=== PATIENT | female | born 1995 | race African-American/Black ===

== ENCOUNTER 2017-02-25 12:36 | Emergency (ER) | payer OTHER ==
[2017-02-25 12:44] VITALS: BP 151/72
[2017-02-25 15:22] LABS: Hematocrit 30 % (35-47); Hemoglobin 10.5 g/dl (12.0-16.0); Mean Corpuscular HGB Conc 36 g/dl (31-36); Mean Corpuscular Hemoglobin 32 pg (27-31); Mean Corpuscular Volume 90 fL (80-97); Mean Platelet Volume 8 um3 (7.4-10.4); Red Blood Count 3.29 10^6/ul (4.0-5.4); Red Cell Distribution Width 13 % (10.5-15); White Blood Count 6.2 10^3/ul (3.5-10.8)
[2017-02-25 15:39] LABS: Urine Bacteria 1+ (Absent); Urine Bilirubin Negative (Negative); Urine Glucose Negative (Negative); Urine Nitrite Negative (Negative)
[2017-02-25 15:55] LABS: Albumin 3.5 g/dL (3.2-5.2); BUN/Creatinine Ratio 16.4 (8-20); Calcium 8.6 mg/dL (8.6-10.3); EGFR African American 179.4 (>60); EGFR Non-African American 139.5 (>60); Globulin 2.8 g/dL (2-4); Potassium 3.7 mmol/L (3.5-5.0); Total Bilirubin 0.2 mg/dL (0.2-1.0); Total Protein 6.3 g/dL (6.4-8.9)
--- NOTE | 2017-02-26 15:21 | ED ---
Stacy Sierra Nilda, scribed for Shaka Estes MD on 02/25/17 at 1606 . - HPI Summary HPI Summary: This patient is a 21 year old F presenting to [facility] accompanied by daughter with a chief complaint of constant lower abd pain since yesterday. The patient rates the pain 3/10 in severity. Symptoms aggravated by pressure and alleviated by rest. Pt states she is between 32-33 weeks and just moved to [facility], so she does not currently have pre-lonnie care. Pt due date is 04/19/16 and this is her second . Hx preeclampsia with first child. First child was born 2 weeks early. Pt states she last received pre-lonnie care in February. Patient denies complications with current , abnormal vaginal discharge, headache, CP, SOB, and vision changes. LNMP unknown. Pt is concerned for baby's wellbeing. - History of Current Complaint Chief Complaint: EDAbdPain Stated Complaint: 32 WEEKS / ABD PAIN Time Seen by Provider: 02/25/17 14:43 Hx Obtained From: Patient Chief Complaint: Other: - Lower Abd/Pain Onset/Duration: Started Days Ago, Still Present Timing: Constant Current Severity: Mild Pain Intensity: 3 Location of Pain: Left Side - Lower Aggravating Factors: Other: - pressure Alleviating Factors: Other: - rest Associated Signs and Symptoms: Positive: Other: - abd pain; denies complications with current , abnormal vaginal discharge, headache, CP, SOB, and vision changes. - Assessment Expected Date of Delivery: 04/19/16 Hx : 2 Hx Para: 2 History of Ectopic : No Vaginal Bleeding Amount: None - Allergies/Home Medications Allergies/Adverse Reactions: Allergies Allergy/AdvReac Type Severity Reaction Status Date / Time No Known Allergies Allergy Verified 02/25/17 12:40 PMH/Surg Hx/FS Hx/Imm Hx Cardiovascular History: Reports: Hx Hypertension Sensory History: Denies: Hx Legally Blind EENT History: Denies: Hx Deafness Infectious Disease History: No Infectious Disease History: Denies: Traveled Outside the [place] in Last 30 Days - Family History Known Family History: Positive: Hypertension, Diabetes Review of Systems Positive: Other - negative vision changes Negative: Chest Pain Negative: Shortness Of Breath Positive: Abdominal Pain Positive: other - 32-33 weeks . Negative: discharge Negative: Headache All Other Systems Reviewed And Are Negative: Yes Physical Exam - Summary Physical Exam Summary: VITAL SIGNS: Reviewed. GENERAL: Patient is a well-developed and nourished (MALE OR FEMALE) who is lying comfortable in the stretcher. Patient is not in any acute respiratory distress. HEAD AND FACE: No signs of trauma. No ecchymosis, hematomas or skull depressions. No sinus tenderness. EYES: PERRLA, EOMI x 2, No injected conjunctiva, no nystagmus. EARS: Hearing grossly intact. Ear canals and tympanic membranes are within normal limits. MOUTH: Oropharynx within normal limits. NECK: Supple, trachea is midline, no adenopathy, no JVD, no carotid bruit, no c- spine tenderness, neck with full ROM. CHEST: Symmetric, no tenderness at palpation LUNGS: Clear to auscultation bilaterally. No wheezing or crackles. CVS: Regular rate and rhythm, S1 and S2 present, no murmurs or gallops appreciated. ABDOMEN: Soft, non-tender. No rebound no guarding, and no masses palpated. Bowel sounds are normal. Distended abd secondary to . EXTREMITIES: FROM in all major joints, no edema, no cyanosis or clubbing. NEURO: Alert and oriented x 3. No acute neurological deficits. Speech is normal and follows commands. SKIN: Dry and warm - Physical Exam Triage Information Reviewed: Yes Vital Signs Reviewed: Yes Diagnostics - Vital Signs Vital Signs Temp Pulse Resp BP Pulse Ox 02/25/17 12:40 97.1 F 99 16 151/72 99 - Laboratory Result Diagrams: 02/25/17 15:10 02/25/17 15:10 Lab Statement: Any lab studies that have been ordered have been reviewed, and results considered in the medical decision making process. Course/Dx - Course Assessment/Plan: This patient is a 21 year old F presenting to [facility] accompanied by daughter with a chief complaint of constant lower abd pain since yesterday. The patient rates the pain 3/10 in severity. Symptoms aggravated by pressure and alleviated by rest. Pt states she is between 32-33 weeks and just moved to [facility], so she does not currently have pre-lonnie care. Pt due date is 04/19/16 and this is her second . Hx preeclampsia with first child. First child was born 2 weeks early. Pt states she last received pre- lonnie care in February. Patient denies complications with current , abnormal vaginal discharge, headache, CP, SOB, and vision changes. LNMP unknown. Pt is concerned for baby's wellbeing. [address] Wright ( [facility] [employer]) who advised that due to lack of symptoms, normal liver function test, no protein in urine, Dr. Wright recommends discharging patient with follow up at her office sometime this week. Pt is stable and will be D/C with a diagnosis of abdominal cramping and . Blood pressure is probably due to her chroninc HTN but chose not to take any medications . Since she chooses not to take any antihypertensive medications we won't start any at this time. - Diagnoses Provider Diagnoses: , Abdominal cramping - Provider Notifications Discussed Care Of Patient With: Deborah Wright - [facility] Time Discussed With Above Provider: 16:47 Instructed by Provider To: Other - Due to lack of symptoms, normal liver function test, no protein in urine, Dr. Wright recommends discharging patient with follow up at her office sometime this week. Discharge - Discharge Plan Condition: Stable Disposition: HOME Patient Education Materials: (ED), Abdominal Pain in (ED) Referrals: Deborah Wright MD [Medical Doctor] - (Sometime this week. ) Additional Instructions: RETURN TO THE EMERGENCY DEPARTMENT FOR CHANGING OR WORSENING SYMPTOMS. The documentation as recorded by the Stacy lees Nilda accurately reflects the service I personally performed and the decisions made by me, Shaka Estes MD.
== END 2017-02-25 17:32 | disposition home or self-care (01) ==
LOC: ED 12:36
DX: O26.93 Pregnancy related conditions, unspecified, third trimester (principal); R10.9 Unspecified abdominal pain; O16.3 Unspecified maternal hypertension, third trimester
CPT/HCPCS: 36415; 80053; 81003; 81015; 85027; 87086; 99282

== ENCOUNTER 2017-09-29 13:47 | Emergency (ER) | payer OTHER ==
[2017-09-29] MEDS ORDERED: Azithromycin TAB* 250 MG PO ONE (14:54)
--- NOTE | 2017-09-29 15:08 | ED ---
Respiratory - HPI Summary HPI Summary: Patient is a 22-year-old female presenting to the ED with request for medication for treating of pertussis. She states her daughter has had a cough x 1 month and was recently swabbed for pertussis d/t symptoms of such. She was told by the agricultural research engineer this is very contagious and should be treated as well. She endorses cough. She is requesting the medication despite having just started cough. Denies fevers, sweats, chills. Denies any chest pain. Immunizations are up-to-date. - History of Current Complaint Chief Complaint: EDUpperRespComplaint Stated Complaint: POS PERTUSSIS Time Seen by Provider: 09/29/17 14:08 Hx Obtained From: Patient Onset/Duration: Sudden Onset Timing: Constant Initial Severity: Moderate Pain Intensity: 2 Character: Cough (Nonproductive) Sputum Amount: Small Aggravating Factor(s): URI Alleviating Factor(s): Nothing Associated Signs and Symptoms: Negative - Risk Factors Status Asthmaticus Risk Factors: Negative Pulmonary Embolism Risk Factors: Negative Cardiac Risk Factors: Negative Pseudomonas Risk Factors: Negative Tuberculosis Risk Factors: Negative - Allergy/Home Medications Allergies/Adverse Reactions: Allergies Allergy/AdvReac Type Severity Reaction Status Date / Time No Known Allergies Allergy Verified 02/25/17 12:40 PMH/Surg Hx/FS Hx/Imm Hx Previously Healthy: Yes Cardiovascular History: Reports: Hx Hypertension Sensory History: Denies: Hx Legally Blind, Hx Deafness Opthamlomology History: Denies: Hx Legally Blind - Immunization History Hx Pertussis Vaccination: No Immunizations Up to Date: Unable to Obtain/Confirm Infectious Disease History: No Infectious Disease History: Denies: Traveled Outside the [place] in Last 30 Days - Family History Known Family History: Positive: Hypertension, Diabetes - Social History Occupation: Unemployed Lives: With Family Alcohol Use: None Hx Substance Use: No Substance Use Type: Reports: None Hx Tobacco Use: No Smoking Status (MU): Never Smoked Tobacco Review of Systems Constitutional: Negative Negative: Fever, Chills, Fatigue, Skin Diaphoresis Negative: Dental Pain, Sore Throat, Ear Ache Negative: Palpitations, Chest Pain Positive: Cough. Negative: Shortness Of Breath Negative: Abdominal Pain, Vomiting, Diarrhea Genitourinary: Negative Positive: no symptoms reported, see HPI Skin: Negative Neurological: Negative All Other Systems Reviewed And Are Negative: Yes Physical Exam Triage Information Reviewed: Yes Vital Signs On Initial Exam: Initial Vitals Temp Pulse Resp BP Pulse Ox 97.8 F 108 20 169/70 100 09/29/17 13:51 09/29/17 13:51 09/29/17 13:51 09/29/17 13:51 09/29/17 13:51 Vital Signs Reviewed: Yes Appearance: Positive: Well-Appearing, Well-Nourished Skin: Positive: Warm, Skin Color Reflects Adequate Perfusion Head/Face: Positive: Normal Head/Face Inspection Eyes: Positive: EOMI, EDWIGE, Conjunctiva Clear Neck: Positive: No Lymphadenopathy Respiratory/Lung Sounds: Positive: Clear to Auscultation, Breath Sounds Present Cardiovascular: Positive: RRR, Pulses are Symmetrical in both Upper and Lower Extremities Musculoskeletal: Positive: Normal, Strength/ROM Intact Neurological: Positive: Speech Normal Psychiatric: Positive: Normal, Affect/Mood Appropriate AVPU Assessment: Alert Diagnostics - Vital Signs Vital Signs Temp Pulse Resp BP Pulse Ox 09/29/17 13:51 97.8 F 108 20 169/70 100 - Laboratory Lab Statement: Any lab studies that have been ordered have been reviewed, and results considered in the medical decision making process. Disposition - Course Course Of Treatment: Patient is continuing to request azithromycin despite having cough 1 day. Possible exposure to pertussis. Patient is given Zithromax and was encouraged to follow-up. I have stated she should not take medication unless she is confirmed positive, but will sent to pharmacy at this time anyway. - Diagnoses Provider Diagnoses: Cough Discharge - Sign-Out/Discharge Documenting (check all that apply): Discharge/Admit/Transfer - Discharge Plan Condition: Stable Disposition: HOME Prescriptions: Azithromycin TAB* [Zithromax TAB (Z-ISABEL) 250 mg #6 tabs] 250 mg PO DAILY #4 tab Patient Education Materials: Pertussis (ED) Referrals: No Primary Care Phys,NOPCP [Primary Care Provider] - Additional Instructions: We are treating you at this time for a potential pertussis exposure Please follow up with your PCP If you develop worsening symptoms - return to the ED - Billing Disposition and Condition Condition: STABLE Disposition: Home
[2017-09-29 16:10] VITALS: BP 168/82
== END 2017-09-29 15:35 | disposition home or self-care (01) ==
LOC: ED 13:47
DX: R05 Cough (principal)
CPT/HCPCS: 99282; A9270-GY

== ENCOUNTER 2018-03-13 14:04 | Emergency (ER) | payer OTHER ==
[2018-03-13 16:03] LABS: ABS Basophils 0 10^3/ul (0-0.2); ABS Eosinophils 0 10^3/ul (0-0.6); ABS Lymphocytes 1.9 10^3/ul (1.0-4.8); ABS Monocytes 0.6 10^3/ul (0-0.8); ABS Neutrophils 2.2 10^3/ul (1.5-7.7); ABS Nucleated RBC 0 10^3/ul; Eosinophil % 0.6 %; Hematocrit 37 % (35-47); Hemoglobin 12.6 g/dl (12.0-16.0); Lymphocyte % 40.4 %; Mean Corpuscular HGB Conc 34 g/dl (31-36); Mean Corpuscular Hemoglobin 30 pg (27-31); Mean Corpuscular Volume 89 fL (80-97); Mean Platelet Volume 8.3 fL (7.4-10.4); Nucleated Red Blood Cells % 0.3; Platelet Count 219 10^3/ul (150-450); Red Cell Distribution Width 13 % (10.5-15); White Blood Count 4.7 10^3/ul (3.5-10.8)
--- NOTE | 2018-03-13 16:30 | ED ---
Lower Extremity - HPI Summary HPI Summary: This patient is a 22 year old F presenting to [facility] accompanied by her young childen with a chief complaint of LE and UE edema for the last 6 days The patient rates the pain 8/10 in severity. Patient reports itching and red/blue spots on her feet. She compares the sensations she gets in her hands and feet as one comparable to the sensation that occurs in the extremities after moderate temperature changes. Patient denies perspiration of the hands and feet. She has HTN and does not take her medications the patient does have eczema on her hands. - History of Current Complaint Chief Complaint: EDGeneral Stated Complaint: SEVERE SWELLING AND ITCHING Time Seen by Provider: 03/13/18 16:20 Hx Obtained From: Patient Onset/Duration: Days Severity Initially: Moderate Severity Currently: Moderate Pain Intensity: 8 Pain Scale Used: 0-10 Numeric Timing: Constant Location: Is Diffuse Associated Signs And Symptoms: Positive: Swelling, Other - edema Able to Bear Weight: Yes - Allergies/Home Medications Allergies/Adverse Reactions: Allergies Allergy/AdvReac Type Severity Reaction Status Date / Time No Known Allergies Allergy Verified 02/25/17 12:40 PMH/Surg Hx/FS Hx/Imm Hx Cardiovascular History: Reports: Hx Hypertension - NOT ON MEDS Respiratory History: Denies: Hx Chronic Obstructive Pulmonary Disease (COPD), Hx Cystic Fibrosis, Hx Lung Cancer Musculoskeletal History: Denies: Hx Fibromyalgia Sensory History: Denies: Hx Legally Blind, Hx Deafness Opthamlomology History: Denies: Hx Legally Blind Infectious Disease History: No Infectious Disease History: Denies: Traveled Outside the [place] in Last 30 Days - Family History Known Family History: Positive: Hypertension, Diabetes - Social History Alcohol Use: None Hx Substance Use: No Substance Use Type: Reports: None Hx Tobacco Use: No Smoking Status (MU): Never Smoked Tobacco Review of Systems Positive: Edema Positive: Other - itching and red/blue spots on her feet. Positive: Paresthesia All Other Systems Reviewed And Are Negative: Yes Physical Exam - Summary Physical Exam Summary: Appearance: Well appearing, no pain distress Skin: there are excoriations to the thighs. There is an eczematous rash to the palms and soles Head/face: normal Eyes: EOMI, EDWIGE ENT: mucous membranes moist Neck: supple, non-tender Respiratory: CTA, breath sounds present Cardiovascular: RRR, pulses symmetrical Abdomen: non-tender, soft Bowel Sounds: present Musculoskeletal: normal, strength/ROM intact, there is no edema to the palms, soles, hands or feet. Neuro: normal, sensory motor intact, A&Ox3 Triage Information Reviewed: Yes Vital Signs On Initial Exam: Initial Vitals Temp Pulse Resp BP Pulse Ox 97.7 F 83 18 144/97 95 03/13/18 14:16 03/13/18 14:16 03/13/18 14:16 03/13/18 14:16 03/13/18 14:16 Vital Signs Reviewed: Yes Diagnostics - Vital Signs Vital Signs Temp Pulse Resp BP Pulse Ox 03/13/18 14:16 97.7 F 83 18 144/97 95 - Laboratory Lab Results: Lab Results 03/13/18 Range/Units 15:52 WBC 4.7 (3.5-10.8) 10^3/ul RBC 4.20 (4.00-5.40) 10^6/ul Hgb 12.6 (12.0-16.0) g/dl Hct 37 (35-47) % MCV 89 (80-97) fL MCH 30 (27-31) pg MCHC 34 (31-36) g/dl RDW 13 (10.5-15) % Plt Count 219 (150-450) 10^3/ul MPV 8.3 (7.4-10.4) fL Neut % (Auto) 46.4 % Lymph % (Auto) 40.4 % [place] % (Auto) 11.9 % Eos % (Auto) 0.6 % Baso % (Auto) 0.7 % Absolute Neuts (auto) 2.2 (1.5-7.7) 10^3/ul Absolute Lymphs (auto) 1.9 (1.0-4.8) 10^3/ul Absolute Monos (auto) 0.6 (0-0.8) 10^3/ul Absolute Eos (auto) 0 (0-0.6) 10^3/ul Absolute Basos (auto) 0 (0-0.2) 10^3/ul Absolute Nucleated RBC 0 10^3/ul Nucleated RBC % 0.3 Result Diagrams: 03/13/18 15:52 03/13/18 15:52 Lab Statement: Any lab studies that have been ordered have been reviewed, and results considered in the medical decision making process. Lower Extremity Course/Dx - Course Course Of Treatment: Patient presents with concern that chronic untreated hypertension may be causing bilateral hand and feet swelling. The patient has no swelling of her extremities and normal laboratories including albumin, renal function and lack of proteinuria. She has uncontrolled eczema with itching on the palms and soles. She uses outpatient steroid ointments. I will also give her Medrol pack and referral for primary care as well as [facility] follow-up. - Diagnoses Differential Diagnosis/HQI/PQRI: Positive: Other - Eczema, hypertension, nephrotic syndrome, medication reaction, cold reaction Provider Diagnoses: Eczema Discharge - Sign-Out/Discharge Documenting (check all that apply): Patient Departure - Discharge Plan Condition: Improved Disposition: HOME Prescriptions: Colloidal Oatmeal [Eucerin Eczema Relief] 226 gm .SEE ORDER TID #1 unit methylPREDNISolone [Medrol] 4 mg PO DAILY #1 tab.ds.pk Patient Education Materials: Eczema (ED) Referrals: [facility] [Outside] [facility] [place] [facility] [place]Outside] Additional Instructions: Call to follow-up with a primary care physician. Referral line was given to you. Return if worse, new symptoms or other concerns as discussed. - Billing Disposition and Condition Condition: IMPROVED Disposition: Home - Attestation Statements Document Initiated by Luz Maria: Yes Documenting Scribe: John Rodrigues Provider For Whom Luz Maria is Documenting (Include Credential): Damien Leiva MD Scribe Attestation: John Sierra , scribed for Damien Leiva MD on 03/13/18 at 2001. Scribe Documentation Reviewed: Yes Provider Attestation: The documentation as recorded by the John lees accurately reflects the service I personally performed and the decisions made by me, Damien Leiva MD Status of Scribe Document: Viewed
[2018-03-13 16:52] LABS: Urine Appearance Cloudy; Urine Blood Negative (Negative); Urine Color Yellow; Urine Ketones Negative (Negative); Urine Protein Negative (Negative); Urine Urobilinogen Negative (Negative)
[2018-03-13 17:18] VITALS: BP 142/87
== END 2018-03-13 17:24 | disposition home or self-care (01) ==
LOC: ED 14:04
DX: L30.9 Dermatitis, unspecified (principal); I10 Essential (primary) hypertension
CPT/HCPCS: 36415; 80053; 81003; 84702; 85025; 86703; 99282

== ENCOUNTER 2018-07-15 11:29 | Emergency (ER) | payer OTHER ==
[2018-07-15 14:10] VITALS: BP 00/00
--- NOTE | 2018-07-15 14:59 | ED ---
Skin Complaint - HPI Summary HPI Summary: Patient is a 22-year-old female presenting to the ED with the concern for HSV-1 virus. She is hyperventilating and crying on arrival. She states her boyfriend was recently diagnosed with HSV-1 and she feels she may have this and might be "dying." She denies any symptoms. She does not understand the virus. She states she knows nothing about this virus, however she understands this is sexually transmitted. She is crying as her boyfriend is currently accusing her of cheating on him. She denies any other concerns at this time. She has never had any lesions or outbreaks. She states she was recently tested for STDs and this was negative. - History of Current Complaint Chief Complaint: EDGeneral Time Seen by Provider: 07/15/18 11:42 Stated Complaint: EXPOSURE TO HERPES PER PT Hx Obtained From: Patient Onset/Duration: Started Hours Ago Skin Exposure Onset/Duration: Hours Ago Timing: Constant Onset Severity: Moderate Current Severity: Moderate Pain Intensity: 0 Pain Scale Used: 0-10 Numeric Aggravating Symptom(s): Nothing Alleviating Symptom(s): Nothing - Allergy/Home Medications Allergies/Adverse Reactions: Allergies Allergy/AdvReac Type Severity Reaction Status Date / Time No Known Allergies Allergy Verified 02/25/17 12:40 Home Medications: Home Medications NK [No Home Medications Reported] 07/15/18 [History Confirmed 07/15/18] PMH/Surg Hx/FS Hx/Imm Hx Previously Healthy: Yes Cardiovascular History: Reports: Hx Hypertension - NOT ON MEDS Respiratory History: Denies: Hx Chronic Obstructive Pulmonary Disease (COPD), Hx Cystic Fibrosis, Hx Lung Cancer Musculoskeletal History: Denies: Hx Fibromyalgia Sensory History: Denies: Hx Legally Blind, Hx Deafness Opthamlomology History: Denies: Hx Legally Blind - Immunization History Hx Pertussis Vaccination: No Immunizations Up to Date: Yes Infectious Disease History: No Infectious Disease History: Denies: Traveled Outside the [place] in Last 30 Days - Family History Known Family History: Positive: Hypertension, Diabetes - Social History Occupation: Unemployed Lives: Alone Alcohol Use: None Hx Substance Use: No Substance Use Type: Reports: None Hx Tobacco Use: No Smoking Status (MU): Never Smoked Tobacco Review of Systems Negative: Fever, Chills, Fatigue, Skin Diaphoresis Negative: Palpitations, Chest Pain Negative: Shortness Of Breath, Cough Genitourinary: Negative Positive: no symptoms reported, see HPI Negative: Arthralgia, Myalgia Negative: Rash, Bruising Positive: Anxious All Other Systems Reviewed And Are Negative: Yes Physical Exam Triage Information Reviewed: Yes Vital Signs On Initial Exam: Initial Vitals Temp Pulse Resp BP Pulse Ox 97.1 F 88 18 141/93 98 07/15/18 11:36 07/15/18 11:36 07/15/18 11:36 07/15/18 11:36 07/15/18 11:36 Vital Signs Reviewed: Yes Appearance: Positive: Well-Appearing, Well-Nourished Skin: Positive: Warm, Skin Color Reflects Adequate Perfusion Head/Face: Positive: Normal Head/Face Inspection Eyes: Positive: EOMI, Conjunctiva Clear Respiratory/Lung Sounds: Positive: Clear to Auscultation, Breath Sounds Present Cardiovascular: Positive: RRR, Pulses are Symmetrical in both Upper and Lower Extremities Musculoskeletal: Positive: Strength/ROM Intact Psychiatric: Positive: Anxious Diagnostics - Vital Signs Vital Signs Temp Pulse Resp BP Pulse Ox 07/15/18 14:07 0 F 0 0 00/00 0 07/15/18 11:36 97.1 F 88 18 141/93 98 - Laboratory Lab Statement: Any lab studies that have been ordered have been reviewed, and results considered in the medical decision making process. Course/Dx - Course Course Of Treatment: During his course of treatment, the patient's evaluated for HSV-1 virus. She states her boyfriend was recently diagnosed with HSV-1 and she feels she may have this. She is hyperventilating and crying on arrival. She has no signs of lesions or outbreaks. She was last tested for STDs 2 weeks ago and all was negative. Discussed with the patient at length and reassured the patient that this is a very common virus and this is not sexually transmitted. Patient understands and is OK for discharge at this time. - Diagnoses Provider Diagnoses: Anxiety about health Discharge - Sign-Out/Discharge Documenting (check all that apply): Patient Departure Patient Received Moderate/Deep Sedation with Procedure: No - Discharge Plan Condition: Stable Disposition: HOME Patient Education Materials: Oral Herpes Simplex Virus Infections (ED) Referrals: No Primary Care Phys,NOPCP [Primary Care Provider] - Additional Instructions: Oral herpes simplex virus is caused by a cold with contact of another infected person who has a cold This is not caused by any sexual activity and is NOT genital herpes. Most people have this virus and will cause outbreaks usually once or twice a year after you are infected. You get infected by a cold through a contact of touching someone else who has the virus. Over 80% of the population has this virus It is often very common in children If you have any symptoms, over the counter creams (called Abreva) should be placed over the area as soon as possible to help with healing You should not share straws, drinks or kiss anyone when you have the outbreak of the virus. YOU currently do not have this virus, however, if you develop any symptoms, as discussed, this does not require testing as most of the population has this. Using a cream over the area for comfort. - Billing Disposition and Condition Condition: STABLE Disposition: Home
== END 2018-07-15 14:07 | disposition home or self-care (01) ==
LOC: ED 11:29
DX: I10 Essential (primary) hypertension (principal); F41.9 Anxiety disorder, unspecified
CPT/HCPCS: 99281

== ENCOUNTER 2018-09-27 09:04 | Emergency (ER) | payer OTHER ==
[2018-09-27 09:55] LABS: ABS Eosinophils 0.1 10^3/ul (0-0.6); ABS Monocytes 0.4 10^3/ul (0-0.8); ABS Neutrophils 1.8 10^3/ul (1.5-7.7); Eosinophil % 1.7 %; Hematocrit 35 % (35-47); Hemoglobin 11.9 g/dL (12.0-16.0); Mean Corpuscular HGB Conc 34 g/dL (31-36); Mean Corpuscular Hemoglobin 31 pg (27-31); Mean Corpuscular Volume 91 fL (80-97); Mean Platelet Volume 8.2 fL (7.4-10.4); Nucleated Red Blood Cells % 0.1; Platelet Count 193 10^3/uL (150-450); Red Blood Count 3.88 10^6 /uL (3.70-4.87); Red Cell Distribution Width 13 % (10-15); White Blood Count 4.3 10^3/uL (3.5-10.8)
[2018-09-27 10:08] LABS: ALT 13 U/L (7-52); AST 14 U/L (13-39); Albumin 4.1 g/dL (3.2-5.2); Albumin/Globulin Ratio 1.5 (1-3); Alkaline Phosphatase 48 U/L (34-104); Anion Gap 6 mmol/L (2-11); Blood Urea Nitrogen 12 mg/dL (6-24); CO2 Carbon Dioxide 26 mmol/L (22-32); Chloride 105 mmol/L (101-111); EGFR African American 149.9 (>60); EGFR Non-African American 123.9 (>60); Globulin 2.8 g/dL (2-4); Glucose 100 mg/dL (70-100); Potassium 3.8 mmol/L (3.5-5.0); Sodium 137 mmol/L (135-145); Total Protein 6.9 g/dL (6.4-8.9)
[2018-09-27 10:13] LABS: HCG Pregnancy 505.32 mIU/mL
--- NOTE | 2018-09-27 10:25 | ED ---
GI/ HPI - HPI Summary HPI Summary: 23-year-old female presents with lower abdominal pain for the past couple days. She states she just found out she is . Denies any vaginal bleeding. She admits to some nausea but no vomiting. No urinary symptoms. She admits to constipation but no diarrhea. She is unsure how she is. No chest or shortness breath. Has history of high blood pressure. - History of Current Complaint Chief Complaint: EDAbdPain Time Seen by Provider: 09/27/18 09:11 Stated Complaint: STOMACH HURTS PER PT Pain Intensity: 7 - Allergy/Home Medications Allergies/Adverse Reactions: Allergies Allergy/AdvReac Type Severity Reaction Status Date / Time No Known Allergies Allergy Verified 09/27/18 09:09 Home Medications: Home Medications Sertraline HCl [Zoloft] 50 mg PO DAILY 09/27/18 [History Confirmed 09/27/18] PMH/Surg Hx/FS Hx/Imm Hx Endocrine/Hematology History: Denies: Hx Anticoagulant Therapy Cardiovascular History: Reports: Hx Hypertension - NOT ON MEDS Respiratory History: Denies: Hx Chronic Obstructive Pulmonary Disease (COPD), Hx Cystic Fibrosis, Hx Lung Cancer Musculoskeletal History: Denies: Hx Fibromyalgia Sensory History: Denies: Hx Legally Blind Opthamlomology History: Denies: Hx Legally Blind Infectious Disease History: No Infectious Disease History: Denies: Traveled Outside the [place] in Last 30 Days - Family History Known Family History: Positive: Hypertension, Diabetes - Social History Alcohol Use: None Hx Substance Use: No Substance Use Type: Reports: None Hx Tobacco Use: No Smoking Status (MU): Never Smoked Tobacco Review of Systems Negative: Fever Negative: Chest Pain Negative: Shortness Of Breath Positive: Abdominal Pain. Negative: Vomiting, Nausea All Other Systems Reviewed And Are Negative: Yes Physical Exam Triage Information Reviewed: Yes Vital Signs On Initial Exam: Initial Vitals Temp Pulse Resp BP Pulse Ox 96.7 F 84 16 155/106 99 09/27/18 09:06 09/27/18 09:06 09/27/18 09:06 09/27/18 09:06 09/27/18 09:06 Vital Signs Reviewed: Yes Appearance: Positive: Well-Appearing Skin: Positive: Warm, Dry Head/Face: Positive: Normal Head/Face Inspection Eyes: Positive: Normal, Conjunctiva Clear ENT: Positive: Pharynx normal Respiratory/Lung Sounds: Positive: Clear to Auscultation, Breath Sounds Present Cardiovascular: Positive: Normal, RRR Abdomen Description: Positive: Nontender, Soft Bowel Sounds: Positive: Present Musculoskeletal: Positive: Normal Neurological: Positive: Normal Psychiatric: Positive: Normal Diagnostics - Vital Signs Vital Signs Temp Pulse Resp BP Pulse Ox 09/27/18 09:06 96.7 F 84 16 155/106 99 - Laboratory Lab Results: Lab Results 09/27/18 09/27/18 09/27/18 Range/Units 09:40 09:40 09:40 WBC 4.3 (3.5-10.8) 10^3/uL RBC 3.88 (3.70-4.87) 10^6 /uL Hgb 11.9 L (12.0-16.0) g/dL Hct 35 (35-47) % MCV 91 (80-97) fL MCH 31 (27-31) pg MCHC 34 (31-36) g/dL RDW 13 (10-15) % Plt Count 193 (150-450) 10^3/uL MPV 8.2 (7.4-10.4) fL Neut % (Auto) 41.4 % Lymph % (Auto) 46.0 % [place] % (Auto) 9.9 % Eos % (Auto) 1.7 % Baso % (Auto) 1.0 % Absolute Neuts (auto) 1.8 (1.5-7.7) 10^3/ul Absolute Lymphs (auto) 2.0 (1.0-4.8) 10^3/ul Absolute Monos (auto) 0.4 (0-0.8) 10^3/ul Absolute Eos (auto) 0.1 (0-0.6) 10^3/ul Absolute Basos (auto) 0.0 (0-0.2) 10^3/ul Absolute Nucleated RBC 0.0 10^3/ul Nucleated RBC % 0.1 Sodium 137 (135-145) mmol/L Potassium 3.8 (3.5-5.0) mmol/L Chloride 105 (101-111) mmol/L Carbon Dioxide 26 (22-32) mmol/L Anion Gap 6 (2-11) mmol/L BUN 12 (6-24) mg/dL Creatinine 0.60 (0.51-0.95) mg/dL Est GFR ( Amer) 149.9 (>60) Est GFR (Non-Af Amer) 123.9 (>60) BUN/Creatinine Ratio 20.0 (8-20) Glucose 100 (70-100) mg/dL Lactic Acid 0.4 L (0.5-2.0) mmol/L Calcium 9.0 (8.6-10.3) mg/dL Total Bilirubin 0.60 (0.2-1.0) mg/dL AST 14 (13-39) U/L ALT 13 (7-52) U/L Alkaline Phosphatase 48 (34-104) U/L C-Reactive Protein 1.20 (<8.01) mg/L Total Protein 6.9 (6.4-8.9) g/dL Albumin 4.1 (3.2-5.2) g/dL Globulin 2.8 (2-4) g/dL Albumin/Globulin Ratio 1.5 (1-3) Lipase < 10 L (11.0-82.0) U/L Beta HCG, Quant 505.32 mIU/mL Blood Type Antibody Screen 09/27/18 Range/Units 09:40 WBC (3.5-10.8) 10^3/uL RBC (3.70-4.87) 10^6 /uL Hgb (12.0-16.0) g/dL Hct (35-47) % MCV (80-97) fL MCH (27-31) pg MCHC (31-36) g/dL RDW (10-15) % Plt Count (150-450) 10^3/uL MPV (7.4-10.4) fL Neut % (Auto) % Lymph % (Auto) % [place] % (Auto) % Eos % (Auto) % Baso % (Auto) % Absolute Neuts (auto) (1.5-7.7) 10^3/ul Absolute Lymphs (auto) (1.0-4.8) 10^3/ul Absolute Monos (auto) (0-0.8) 10^3/ul Absolute Eos (auto) (0-0.6) 10^3/ul Absolute Basos (auto) (0-0.2) 10^3/ul Absolute Nucleated RBC 10^3/ul Nucleated RBC % Sodium (135-145) mmol/L Potassium (3.5-5.0) mmol/L Chloride (101-111) mmol/L Carbon Dioxide (22-32) mmol/L Anion Gap (2-11) mmol/L BUN (6-24) mg/dL Creatinine (0.51-0.95) mg/dL Est GFR ( Amer) (>60) Est GFR (Non-Af Amer) (>60) BUN/Creatinine Ratio (8-20) Glucose (70-100) mg/dL Lactic Acid (0.5-2.0) mmol/L Calcium (8.6-10.3) mg/dL Total Bilirubin (0.2-1.0) mg/dL AST (13-39) U/L ALT (7-52) U/L Alkaline Phosphatase (34-104) U/L C-Reactive Protein (<8.01) mg/L Total Protein (6.4-8.9) g/dL Albumin (3.2-5.2) g/dL Globulin (2-4) g/dL Albumin/Globulin Ratio (1-3) Lipase (11.0-82.0) U/L Beta HCG, Quant mIU/mL Blood Type O Positive Antibody Screen Negative Result Diagrams: 09/27/18 09:40 09/27/18 09:40 Lab Statement: Any lab studies that have been ordered have been reviewed, and results considered in the medical decision making process. GIGU Course/Dx - Course Course Of Treatment: 23-year-old female presents with lower abdominal pain for the past couple days. She states she just found out she is . Denies any vaginal bleeding. She admits to some nausea but no vomiting. No urinary symptoms. She admits to constipation but no diarrhea. She is unsure how she is. No chest or shortness breath. Has history of high blood pressure. On exam has nontender abd tenderness. White blood count normal. HCG is 500. Explained cannot see anything on ultrasound at this point. We'll have follow-up with OB. Patient understands agrees with plan. - Diagnoses Differential Diagnoses - Female: , Urinary Tract Infection, Other - miscarriage Provider Diagnoses: Discharge - Sign-Out/Discharge Documenting (check all that apply): Patient Departure Patient Received Moderate/Deep Sedation with Procedure: No - Discharge Plan Condition: Good Disposition: HOME Patient Education Materials: First Trimester (ED) Referrals: Boris Syed MD [Medical Doctor] - Additional Instructions: establish care with ob Return to ED if develop any new or worsening symptoms - Billing Disposition and Condition Condition: GOOD Disposition: Home
[2018-09-27 10:37] VITALS: BP 149/87
== END 2018-09-27 10:36 | disposition home or self-care (01) ==
LOC: ED 09:04
DX: Z34.80 Encounter for supervision of other normal pregnancy, unspecified trimester (principal)
CPT/HCPCS: 36415; 80053; 83605; 83690; 84702; 85025; 86140; 86850; 86900; 86901; 99282

== ENCOUNTER 2018-10-08 19:40 | Emergency (ER) | payer OTHER ==
[2018-10-08] MEDS ORDERED: NS 0.9% 1000 ML** 1,000 ML IV ONE (20:18)
[2018-10-08] MEDS ORDERED: Metoclopramide IV* 5 MG/ML 2 ML VIAL IV SLOW PU ONE (20:35)
[2018-10-08 20:59] LABS: Rapid Strep Molecular Negative (Negative)
--- NOTE | 2018-10-08 21:23 | ED ---
- HPI Summary HPI Summary: 23 year old female presents with multiple complaints today. States she developed a sore throat last night. States that she states feels very dehydrated and all over aches. Denies any fevers. Denies any cough or chest pain. Does admits occasional shortness of breath. Does admit to abdominal pain after she eats. Denies any vaginal bleeding. No cramping. Has history of high blood pressure and diabetes. not on any medications. only had hcg of 500 last week. - History of Current Complaint Chief Complaint: EDAbdPain Stated Complaint: PREG/NAUSEA/ABD AND BACK PAIN PER PT Time Seen by Provider: 10/08/18 20:13 Pain Intensity: 8 - Assessment Hx : 2 Hx Para: 2 - Allergies/Home Medications Allergies/Adverse Reactions: Allergies Allergy/AdvReac Type Severity Reaction Status Date / Time No Known Allergies Allergy Verified 10/08/18 19:47 PMH/Surg Hx/FS Hx/Imm Hx Endocrine/Hematology History: Denies: Hx Anticoagulant Therapy Cardiovascular History: Reports: Hx Hypertension - NOT ON MEDS Respiratory History: Denies: Hx Chronic Obstructive Pulmonary Disease (COPD), Hx Cystic Fibrosis, Hx Lung Cancer Musculoskeletal History: Denies: Hx Fibromyalgia Sensory History: Denies: Hx Legally Blind Opthamlomology History: Denies: Hx Legally Blind Infectious Disease History: No Infectious Disease History: Denies: Traveled Outside the [place] in Last 30 Days - Family History Known Family History: Positive: Hypertension, Diabetes - Social History Alcohol Use: None Hx Substance Use: No Substance Use Type: Reports: None Hx Tobacco Use: No Smoking Status (MU): Never Smoked Tobacco Review of Systems Negative: Fever Positive: Sore Throat Negative: Chest Pain Positive: Shortness Of Breath Positive: Abdominal Pain, Vomiting, Nausea. Negative: Diarrhea All Other Systems Reviewed And Are Negative: Yes Physical Exam - Physical Exam Triage Information Reviewed: Yes Vital Signs Reviewed: Yes Appearance: Positive: Well-Appearing Skin: Positive: Warm, Dry Head/Face: Positive: Normal Head/Face Inspection Eyes: Positive: Normal, Conjunctiva Clear ENT: Positive: Pharyngeal erythema, TMs normal Respiratory/Lung Sounds: Positive: Clear to Auscultation, Breath Sounds Present Cardiovascular: Positive: Normal, RRR Abdomen Description: Positive: Nontender, Soft Bowel Sounds: Positive: Present Musculoskeletal: Positive: Normal Neurological: Positive: Normal Psychiatric: Positive: Normal Diagnostics - Vital Signs Vital Signs Temp Pulse Resp BP Pulse Ox 10/08/18 19:44 97.2 F 103 14 135/81 99 - Laboratory Lab Results: Lab Results 10/08/18 Range/Units 20:45 Group A Strep Rapid Negative (Negative) Lab Statement: Any lab studies that have been ordered have been reviewed, and results considered in the medical decision making process. Course/Dx - Course Course Of Treatment: 23 year old female presents with multiple complaints today. States she developed a sore throat last night. States that she states feels very dehydrated and all over aches. Denies any fevers. Denies any cough or chest pain. Does admits occasional shortness of breath. Does admit to abdominal pain after she eats. Denies any vaginal bleeding. No cramping. Has history of high blood pressure and diabetes. not on any medications. On exam pharynx erythematous. Uvula midline. Lungs clear auscultation. Abdomen soft nontender. Strep is negative. Gave nausea medication and fluids but patient became impatient and declined further lab work and decided to leave. Told to follow with [facility]. Offered to give medication for nausea and patient declined. - Differential Diagnosis/HQI/PQRI: Other: - strept, mono, - Diagnoses Provider Diagnoses: Sore throat, Nausea, , Abdominal pain Discharge - Sign-Out/Discharge Documenting (check all that apply): Patient Departure Patient Received Moderate/Deep Sedation with Procedure: No - Discharge Plan Condition: Good Disposition: HOME Patient Education Materials: (ED) Referrals: No Primary Care Phys,NOPCP [Primary Care Provider] - Luc Gregory MD [Medical Doctor] - Additional Instructions: take tyenlol every 6 hours for pain Drink plenty of fluids Follow up with ob Return to ED if develop any new or worsening symptoms - Billing Disposition and Condition Condition: GOOD Disposition: Home
[2018-10-08 21:46] VITALS: BP 000/00
== END 2018-10-08 21:42 | disposition home or self-care (01) ==
LOC: ED 19:40
DX: J02.9 Acute pharyngitis, unspecified (principal); R11.0 Nausea; R10.9 Unspecified abdominal pain; O10.919 Unspecified pre-existing hypertension complicating pregnancy, unspecified trimester; O24.319 Unspecified pre-existing diabetes mellitus in pregnancy, unspecified trimester; E11.9 Type 2 diabetes mellitus without complications; Z3A.00 Weeks of gestation of pregnancy not specified
CPT/HCPCS: 87651; 96361; 96374; 99282; J2765

== ENCOUNTER 2019-04-08 11:14 | Emergency (ER) | payer OTHER ==
--- NOTE | 2019-04-08 11:51 | ED ---
GI/ HPI - HPI Summary HPI Summary: Patient is a 23 y/o F presenting to the ED for a chief complaint of dysuria and groin pain. Patient states that she had sexual intercourse with a new sexual partner on 04/07/19. Since the encounter, she has noticed a yellow spot near her vagina and had groin pain. She also reports vaginal discharge that she describes as yellow with red specks in the discharge, dysuria, urinary burning, and a fever. Patient denies oral lesions, abdominal pain, or malodorous discharge. Patient does not use control and did not use condoms during the encounter. She denies any aggravating or alleviating factors. PMHx is significant for iron deficiency, eczema, and chlamydia for which she was treated. She denies taking iron supplements. Patient admits e-cigarettes and marijuana use. LNMP was on 03/27/19. Allergies noted. Medications reviewed. - History of Current Complaint Chief Complaint: EDUrogenitalProblems Time Seen by Provider: 04/08/19 11:39 Stated Complaint: GENERAL PER PT Hx Obtained From: Patient Hx Last Menstrual Period: 03/27/19 Onset/Duration: Started Hours Ago, Atraumatic, Still Present Timing: Constant Severity: Moderate Current Severity: Moderate Pain Intensity: 4 Location of Pain: Groin Pain Characteristics: Burning Associated Signs and Symptoms: Positive: Discharge - Vaginal, Fever - In vitals , 99.6 F, Dysuria, New Sexual Partner, UTI Symptoms - Urinary burning. Negative : Abdominal Pain Aggravating Factor(s): Nothing Alleviating Factor(s): Nothing - Allergy/Home Medications Allergies/Adverse Reactions: Allergies Allergy/AdvReac Type Severity Reaction Status Date / Time No Known Allergies Allergy Verified 04/08/19 11:29 Home Medications: Home Medications NK [No Home Medications Reported] 04/08/19 [History Confirmed 04/08/19] PMH/Surg Hx/FS Hx/Imm Hx Previously Healthy: Yes Endocrine/Hematology History: Denies: Hx Anticoagulant Therapy, Hx Diabetes Cardiovascular History: Reports: Hx Hypertension - NOT ON MEDS Denies: Hx Hypercholesterolemia Respiratory History: Denies: Hx Chronic Obstructive Pulmonary Disease (COPD), Hx Cystic Fibrosis, Hx Lung Cancer Musculoskeletal History: Denies: Hx Fibromyalgia Sensory History: Denies: Hx Legally Blind, Hx Deafness Opthamlomology History: Denies: Hx Legally Blind EENT History: Denies: Hx Deafness - Surgical History Surgical History: None Surgery Procedure, Year, and Place: None Infectious Disease History: No Infectious Disease History: Denies: Traveled Outside the [place] in Last 30 Days - Family History Known Family History: Positive: Hypertension, Diabetes - Social History Alcohol Use: None Hx Substance Use: Yes Substance Use Type: Reports: Marijuana Hx Tobacco Use: Yes Smoking Status (MU): Current Some Day Smoker Type: eCigarettes Review of Systems Positive: Fever - In vitals, 99.6 F Negative: Abdominal Pain Positive: burning - Urinary, dysuria, pain - Groin, other - Positive yellow spot near the vagina Negative: Other - Negative oral lesions All Other Systems Reviewed And Are Negative: Yes Physical Exam - Summary Physical Exam Summary: Constitutional: Well-developed, Well-nourished, Alert. (-) Distressed Skin: Warm, Dry HENT: Normocephalic; Atraumatic Eyes: Conjunctiva normal Neck: Musculoskeletal ROM normal neck. (-) JVD, (-) Stridor, (-) Tracheal deviation Cardio: Rhythm regular, rate normal, Heart sounds normal; Intact distal pulses; Radial pulses are 2+ and symmetric. (-) Murmur Pulmonary/Chest wall: Effort normal. (-) Respiratory distress, (-) Wheezes, (-) Rales Abd: Soft, (-) tenderness, (-) Distension, (-) Guarding, (-) Rebound Musculoskeletal: (-) Edema Lymph: (-) Cervical adenopathy Neuro: Alert, Oriented x3 Psych: Mood and affect Normal : Lucía is present for the exam. On the left side of the labia, there is a yellowish lesion without ulceration, patient has brownish discharge, there is an almost necrotic looking lesion on the left adnexal that is non-tender, no lymphadenopathy. Triage Information Reviewed: Yes Vital Signs On Initial Exam: Initial Vitals Temp Pulse Resp BP Pulse Ox 99.6 F 94 18 133/103 100 04/08/19 11:25 04/08/19 11:25 04/08/19 11:25 04/08/19 11:25 04/08/19 11:25 Vital Signs Reviewed: Yes Procedures - Sedation Patient Received Moderate/Deep Sedation with Procedure: No Diagnostics - Vital Signs Vital Signs Temp Pulse Resp BP Pulse Ox 04/08/19 11:25 99.6 F 94 18 133/103 100 - Laboratory Lab Statement: Any lab studies that have been ordered have been reviewed, and results considered in the medical decision making process. GIGU Course/Dx - Course Course Of Treatment: Patient is here with vaginal discharge and a lesion on her vaginal wall. Patient has a yellowish lesion which does not appear ulcerated. Patient has cervical discoloration with discharge and tenderness. Patient was treated empirically for gonorrhea and chlamydia. Patient had a negative and HIV test. Patient is told to have her partners tested as well. Patient was discharged and will follow[facility]up with [facility] days. - Diagnoses Provider Diagnoses: Cervicitis Discharge ED - Sign-Out/Discharge Documenting (check all that apply): Patient Departure - Discharge - Discharge Plan Condition: Stable Disposition: HOME Patient Education Materials: Cervicitis (ED) Referrals: [facility], [Z.CONVERSION PROVIDER TYPE] - Additional Instructions: PLEASE RETURN TO EMERGENCY DEPARTMENT FOR SEVERE ABDOMINAL PAIN, FEVER, OR ANY NEW OR WORSENING SYMPTOMS. Please follow up with your primary care physician. Please make all follow-ups in 1-3 days unless I advise you otherwise. Follow up with [facility] at your appointment on Monday. We will call you if any test is positive. Please make sure your partners are tested. - Billing Disposition and Condition Condition: STABLE Disposition: Home - Attestation Statements Document Initiated by Luz Maria: Yes Documenting Scribe: Norma Hilliard Provider For Whom Luz Maria is Documenting (Include Credential): Crow Mcknight MD Scribe Attestation: Norma Sierra, scribed for Crow Mcknight MD on 04/08/19 at 1401. Scribe Documentation Reviewed: Yes Provider Attestation: The documentation as recorded by the Norma lees accurately reflects the service I personally performed and the decisions made by me, Crow Mcknight MD Status of Scribe Document: Viewed
[2019-04-08] MEDS ORDERED: Lidocaine 1% MPF ** 5 ML VIAL IM ONE (12:28)
[2019-04-08] MEDS ORDERED: cefTRIAXone VIAL(*) 250 MG VIAL IM ONE (12:28)
[2019-04-08] MEDS ORDERED: Azithromycin TAB* 250 MG PO ONE (12:28)
[2019-04-08 13:06] LABS: Urine Appearance Cloudy; Urine Bilirubin Negative (Negative); Urine Blood 2+ (Negative); Urine Color Yellow; Urine Glucose Negative (Negative); Urine Ketones Trace (Negative); Urine Nitrite Negative (Negative); Urine Protein 1+(30 mg/dL) (Negative); Urine Specific Gravity 1.031 (1.010-1.030); Urine Urobilinogen Negative (Negative)
[2019-04-08 13:12] LABS: Urine Bacteria Absent (Absent); Urine Red Blood Cell 2+(6-10/hpf) (Absent); Urine Squamous Epithelial Cell Present (Absent); Urine White Blood Cell Trace(0-5/hpf) (Absent)
[2019-04-08 13:17] LABS: HIV 4th Generation Nonreactive (Nonreactive)
[2019-04-08 14:00] VITALS: BP 141/84
[2019-04-10 14:32] LABS: Chlamydia trachomatis NAA Negative (Negative); Neisseria gonorrhoeae (GC) NAA Negative (Negative)
--- NOTE | 2019-04-11 10:53 | ED ---
Imaging and Labs Follow Up Follow Up Type: Labs/Cultures Labs/Culture Result: Vaginal DNA culture Cher negative, Gardnerella positive. Urine culture appears contaminated with normal louie. Patient Communication/Plan: Patient is still symptomatic. She was contacted by phone at 1120 and sent prescription for topical clindamycin for bacterial vaginosis as she is allergic to metronidazole. Provider Diagnoses: Cervicitis
== END 2019-04-08 13:59 | disposition home or self-care (01) ==
LOC: ED 11:14
DX: N72 Inflammatory disease of cervix uteri (principal); I10 Essential (primary) hypertension; F17.290 Nicotine dependence, other tobacco product, uncomplicated
CPT/HCPCS: 36415; 81003; 81015; 84702; 86780; 87077; 87086; 87389; 87480; 87491; 87510; 87591; 87661; 96372; 99282; A9270-GY; J0696